=== PATIENT | male | born 1995 | race Caucasian/White ===

== ENCOUNTER 2024-09-24 12:22 | Outpatient (REF) | payer OTHER, SELFPAY ==
--- NOTE | ~2024-09-24 | XR_ITS ---
EXAMINATION: XR TIBIA FIBULA 2 VIEWS RIGHT HISTORY: S89.91XA - Unspecified injury of right lower leg, initial encounter COMPARISON: There are no prior studies available for comparison. FINDINGS: AP and lateral views of the right tibia and fibula are submitted. Osseous mineralization is normal. There is no fracture or dislocation. The visualized portions of the knee and ankle joint spaces are preserved. The soft tissues are unremarkable. XR/XR tibia fibula RT 2V IMPRESSION: Unremarkable examination of the right tibia and fibula. Electronically signed by: Miguel Conner MD 09/24/2024 02:10 PM EDT
== END 2024-09-24 12:23 | disposition home or self-care (01) ==
LOC: HO.HMGCX 12:22
PROVIDERS: PCP Internal Medicine; Visit Provider Nurse Practitioner Family
DX: S89.91XA Unspecified injury of right lower leg, initial encounter (principal)
CPT/HCPCS: 73590; 99212

== ENCOUNTER 2024-09-24 12:22 | Outpatient (AMB) | payer OTHER, SELFPAY ==
--- NOTE | 2024-09-24 13:03 | MHC.OFFWIV ---
Intake Vital Signs 09/24/24 13:04 Weight 201 lb BP 130/72 Blood Pressure Location Rt brachial Position Sitting Pulse 90 Pulse Source Pulse Oximeter Pulse Oximetry (%) 97 Oxygen Delivery Method Room Air Intake Visit Reasons: [employer] Injured RT foot-WC Intake Note: Patient here for injured right foot while at work today. Patient Tobacco Use Status: Never used Tobacco Allergies No Known Allergies Allergy (Verified 09/24/24 13:21) Do you need a note to return to daycare/school/sports/work: No HPI [employer] Injured RT foot-WC HPI Details This is a 29-year-old male patient who presents to the walk-in clinic today with a right lower leg injury. He states that at work this morning around 0900, a very large box weighing approximately 300 lb fell, grazed the top of his head, and landed on the posterior aspect of his right lower leg where it remained for about 10 seconds until someone could remove it. He states that since then he has had significant pain with walking/any weight-bearing. He took an aspirin with minimal relief. He has also been icing it. He is not on any anticoagulation. He denies any head pain or LOC. Primary issue is his lower leg, which he would like x-rays if possible [facility] Social History Patient Tobacco Use Status: Never used Tobacco Review of Systems Const All systems reviewed & are unremarkable except as noted in HPI and below Physical Exam Vital Signs: Last Vital Signs Pulse 90 09/24/24 13:04 BP 130/72 09/24/24 13:04 Pulse Ox 97 09/24/24 13:04 Oxygen Delivery Method Room Air 09/24/24 13:04 Const General: cooperative, healthy appearing and no acute distress Limitations: no limitations HEENT Other: minor abrasion top of his head, no open areas Head: Yes normal to inspection Ears: hearing grossly normal bilaterally Resp Effort & Inspection: normal respiratory effort Skin General skin exam: no rashes or lesions noted Extrem General: Yes capillary refill normal and Yes no clubbing, cyanosis or edema Right lower extremity: normal to inspection, full ROM, normal capillary refill, no joint enlargement and lower leg Details: normal to inspection, tenderness Location: of the posterior calf and no edema Upper/lower leg/hip images: 1. area of trauma Psych Appearance: grossly normal Mental Status: mental status grossly normal Speech and movement: Normal speech and movement present Assessment & Plan Assessment & Plan (1) Traumatic injury of right lower extremity: Code(s): S89.91XA - Unspecified injury of right lower leg, initial encounter Qualifiers: Encounter type: initial encounter Qualified Code(s): S89.91XA - Unspecified injury of right lower leg, initial encounter Plan: XR obtained today does not reveal any acute fracture. Likely soft tissue injury. I applied CARLIE wrap and advised ice application and rest. I will start him on an antiinflammatory medication and we reviewed indications, use, possible s/e of this. If he does not improve with treatment, time, and rest, or if he develops any worsening or new symptoms, he should return to the clinic or f/u with PCP for further evaluation. Patient verbalizes understanding and agrees to plan. Orders: Orders XR tibia fibula RT 2V Today S89.91XA - Unspecified injury of right lower leg, initial encounter Medications: New meloxicam 15 mg PO DAILY 7 days 7 tabs 0RF S89.91XA - Unspecified injury of right lower leg, initial encounter Coding Level of Care Code Est Pt Level 4 (74459) Diagnoses Traumatic injury of right lower extremity, initial encounter S89.91XA Encounter type: initial encounter
[2024-09-24 13:04] VITALS: BP 130/72; PULSE 90; O2SAT 97
== END 2024-09-24 14:11 | disposition home or self-care (01) ==
PROVIDERS: PCP Internal Medicine; Visit Provider Nurse Practitioner Family
DX: S89.91XA Unspecified injury of right lower leg, initial encounter (principal); Z04.2 Encounter for examination and observation following work accident

== ENCOUNTER → 2024-09-24 13:41 | Outpatient (BNV) | payer OTHER, SELFPAY | PROVIDERS: PCP Internal Medicine; Visit Provider Radiology Diagnostic Radiology | DX: S89.91XA Unspecified injury of right lower leg, initial encounter (principal) | CPT/HCPCS: 73590 ==